=== PATIENT | female | born 1970 | race Caucasian/White ===

== ENCOUNTER → 2017-03-10 | Outpatient (CLI) | payer OTHER ==
--- NOTE | ~2017-03-10 | EKG ---
[place] [address] [facility] [facility] [place] [address] ELECTROCARDIOGRAM REPORT Name: THAO GARCIA [facility] [id number] Admission: 03/10/17 Attend Phys: Carmelo Quispe MD, F Discharge: Date of : 66 Report #: [id number] THIS REPORT FOR: //name// [facility] Test Date: 2017-03-10 Test Time: 13:23:09 Pat Name: THAO GARCIA Department: Room: Gender: F [employer]: zena : 1970 Requested By: Carmelo Quispe Order Number: [id number] MD: Nehemias Burnette Measurements Intervals Kirk Rate: 79 P: 19 CO: 155 QRS: 10 QRSD: 133 T: 170 QT: 435 QTc: 499 Interpretive Statements Sinus rhythm Left bundle branch block No previous ECG available for comparison Electronically Signed On 03-11-2017 8:57:41 CDT by Nehemias Burnette [email or web address] <ELECTRONICALLY SIGNED> By: Nehemias Burnette MD, [facility] 03/11/17 0857 1323 1323 Nehemias Burnette MD, FACC /EPI
== END ==
LOC: RAD 12:43
DX: E66.01 Morbid (severe) obesity due to excess calories (principal)